=== PATIENT | male | born 1940 | race Caucasian/White ===

== ENCOUNTER 2017-04-03 13:22 | Inpatient (IN) | payer OTHER ==
[~2017-04-03] VITALS: Ht 175.3 cm; Wt 99.8 kg
[2017-04-03 15:24] LABS: EOSINOPHIL (%) 0 % (0-5); HEMATOCRIT 44.9 % (38.0-50.0); IMMATURE GRANULOCYTE (%) 0.5 % (0.0-0.7); IMMATURE GRANULOCYTE COUNT 0.1 K/uL; INSTRUMENT ABS NEUTROPHIL CT 11.4 K/uL; LYMPHOCYTE COUNT 0.6 K/uL (1.0-2.8); MCHC 34.7 G/DL (30.0-36.0); MCV 86.3 FL (86-99); MEAN PLAT.VOLUME 9.7 uM^3 (9.0-12.4); MONOCYTE (%) 3.2 % (3-12); MONOCYTE COUNT 0.4 K/uL (0-0.8); NEUTROPHIL (%) 91.2 % (45-76); NEUTROPHIL COUNT 11.4 K/uL (1.8-6.4); PLATELET COUNT 151 K/uL (156-360); RBC DIS.WIDTH-CV 13.2 % (11.8-14.6); RBC DIS.WIDTH-SD 41.1 % (39-53); WHITE BLOOD COUNT 12.4 K/uL (4.1-10.2)
[2017-04-03 15:30] LABS: PROTHROMBIN TIME 11.1 SEC (10.2-12.9)
[2017-04-03 15:33] LABS: PTT 30.7 SEC (25-37)
[2017-04-03 15:36] LABS: CHLORIDE 107 mEq/L (99-109); SODIUM 139 mEq/L (136-147)
[2017-04-03 15:38] LABS: GLUCOSE 127 mg/dL (70-99)
[2017-04-03 15:40] LABS: ANION GAP 11 MEQ/L (2-14); TOTAL BILIRUBIN 1.7 mg/dL (0.0-1.0)
[2017-04-03 15:42] LABS: ALKALINE PHOSPHATASE 88 IU/L (3-129); GFR ESTIMATE (CALCULATED) > 59 mL/min/
[2017-04-03 15:43] LABS: UREA NITROGEN (BUN) 20 mg/dL (9-23)
[2017-04-03 15:45] LABS: TROP-I INTERPRETATION NEGATIVE; TROPONIN-I < 0.01 ng/mL (0.0-0.30)
[2017-04-03 16:25] LABS: ADD MIUA? NO; BILIRUBIN NEGATIVE; BLOOD NEGATIVE; COLOR YELLOW ((YELLOW)); GLUCOSE (STRIP) NEGATIVE; KETONES NEGATIVE; LEUKOCYTES NEGATIVE; NITRITE NEGATIVE; PROTEIN (STRIP) 30; SPECIFIC GRAVITY 1.018 (1.000-1.030); UCUL ADDED? NO; UROBILINOGEN 0.2 MG/DL (0.2-1.0)
[2017-04-03 20:57] VITALS: BP 164/72
[2017-04-03 21:26] LABS: TROP-I INTERPRETATION NEGATIVE; TROPONIN-I 0.03 ng/mL (0.0-0.30)
[2017-04-03 23:48] VITALS: BP 137/63
[2017-04-04 03:42] VITALS: BP 151/74
[2017-04-04 03:43] LABS: HEMATOCRIT 39.5 % (38.0-50.0); MCH 31.1 PG (29.0-34.0); MCHC 35.4 G/DL (30.0-36.0); MCV 87.8 FL (86-99); MEAN PLAT.VOLUME 9.7 uM^3 (9.0-12.4); PLATELET COUNT 139 K/uL (156-360); RBC DIS.WIDTH-CV 13.5 % (11.8-14.6); RBC DIS.WIDTH-SD 43.3 % (39-53); WHITE BLOOD COUNT 12.4 K/uL (4.1-10.2)
[2017-04-04 03:57] LABS: CHLORIDE 106 mEq/L (99-109); SODIUM 139 mEq/L (136-147)
[2017-04-04 04:00] LABS: GLUCOSE 122 mg/dL (70-99)
[2017-04-04 04:01] LABS: ANION GAP 9 MEQ/L (2-14)
[2017-04-04 04:03] LABS: ALKALINE PHOSPHATASE 71 IU/L (3-129); GFR ESTIMATE (CALCULATED) > 59 mL/min/
[2017-04-04 04:04] LABS: TOTAL BILIRUBIN 2.5 mg/dL (0.0-1.0); UREA NITROGEN (BUN) 16 mg/dL (9-23)
[2017-04-04 04:10] LABS: TROP-I INTERPRETATION NEGATIVE; TROPONIN-I 0.02 ng/mL (0.0-0.30)
[2017-04-04 08:12] VITALS: BP 137/63
[2017-04-04] MEDS ORDERED: MEVACOR40 MG PO (11:04)
[2017-04-04] MEDS ORDERED: BRILINTA90 MG PO (11:04)
[2017-04-04] MEDS ORDERED: QUINAPRIL HCL20 MG PO (11:04)
[2017-04-04] MEDS ORDERED: AMLODIPINE BESY10 MG PO (11:04)
[2017-04-04] MEDS ORDERED: LOPRESSOR25 MG PO (11:05)
[2017-04-04] MEDS ORDERED: PAXIL10 MG PO (11:05)
[2017-04-04] MEDS ORDERED: LO-DOSE ASPIRIN81 M1 PO (11:49)
[2017-04-04 11:54] VITALS: BP 134/61
[2017-04-04 16:33] VITALS: BP 131/76
[2017-04-04 19:48] VITALS: BP 148/66
[2017-04-04 23:31] VITALS: BP 140/61
[2017-04-05] VITALS (7 sets, daily range): BP systolic 139–176; BP diastolic 61–79
[2017-04-05 06:54] LABS: HEMATOCRIT 39.6 % (38.0-50.0); MCH 31.7 PG (29.0-34.0); MCHC 35.6 G/DL (30.0-36.0); MEAN PLAT.VOLUME 10.1 uM^3 (9.0-12.4); PLATELET COUNT 125 K/uL (156-360); RBC DIS.WIDTH-CV 13.9 % (11.8-14.6); RBC DIS.WIDTH-SD 45.1 % (39-53); RED BLOOD COUNT 4.45 M/uL (4.00-5.50); WHITE BLOOD COUNT 12.5 K/uL (4.1-10.2)
[2017-04-05 07:23] LABS: ALKALINE PHOSPHATASE 59 IU/L (3-129); ANION GAP 8 MEQ/L (2-14); CHLORIDE 104 MEQ/L (99-109); GFR ESTIMATE (CALCULATED) > 59 mL/min/; GLUCOSE 100 mg/dL (70-99); POTASSIUM 3.7 MEQ/L (3.7-5.4); SAMPLE HEMOLYSIS CHECK 0; SAMPLE ICTERIC CHECK 0; SAMPLE LIPEMIA CHECK 0; SODIUM 137 MEQ/L (136-147); TOTAL BILIRUBIN 2.4 MG/DL (0.0-1.0); UREA NITROGEN (BUN) 15 mg/dL (9-23)
[2017-04-05 07:24] LABS: ALKALINE PHOSPHATASE 60 IU/L (3-129); DIRECT BILIRUBIN 0.4 mg/dL (0.0-0.3); TOTAL BILIRUBIN 2.4 MG/DL (0.0-1.0)
[2017-04-06 04:02] VITALS: BP 164/75
[2017-04-06 06:43] LABS: ALKALINE PHOSPHATASE 66 IU/L (3-129); ANION GAP 7 MEQ/L (2-14); CHLORIDE 102 MEQ/L (99-109); GFR ESTIMATE (CALCULATED) > 59 mL/min/; GLUCOSE 98 mg/dL (70-99); POTASSIUM 3.7 MEQ/L (3.7-5.4); SAMPLE HEMOLYSIS CHECK 0; SAMPLE ICTERIC CHECK 0; SAMPLE LIPEMIA CHECK 0; SODIUM 137 MEQ/L (136-147); UREA NITROGEN (BUN) 15 mg/dL (9-23)
[2017-04-06 08:18] VITALS: BP 126/61
[2017-04-06 08:56] LABS: HEMATOCRIT 41.1 % (38.0-50.0); MCH 30.1 PG (29.0-34.0); MCHC 33.8 G/DL (30.0-36.0); MEAN PLAT.VOLUME 9.7 uM^3 (9.0-12.4); PLATELET COUNT 124 K/uL (156-360); RBC DIS.WIDTH-CV 13.6 % (11.8-14.6); RED BLOOD COUNT 4.62 M/uL (4.00-5.50); WHITE BLOOD COUNT 9.9 K/uL (4.1-10.2)
[2017-04-06 11:34] VITALS: BP 158/70
[2017-04-06 16:01] VITALS: BP 166/70
[2017-04-06 19:28] VITALS: BP 166/74
[2017-04-06 23:40] VITALS: BP 166/74
[2017-04-07 04:07] VITALS: BP 150/64
[2017-04-07 07:57] VITALS: BP 126/58
[2017-04-07 09:29] LABS: HEMATOCRIT 39.1 % (38.0-50.0); MCH 31.4 PG (29.0-34.0); MCV 89.7 FL (86-99); MEAN PLAT.VOLUME 10.4 uM^3 (9.0-12.4); PLATELET COUNT 131 K/uL (156-360); RBC DIS.WIDTH-CV 13.6 % (11.8-14.6); RED BLOOD COUNT 4.36 M/uL (4.00-5.50); WHITE BLOOD COUNT 8.6 K/uL (4.1-10.2)
[2017-04-07 09:56] LABS: ANION GAP 8 MEQ/L (2-14); CHLORIDE 100 MEQ/L (99-109); DIRECT BILIRUBIN 0.5 mg/dL (0.0-0.3); GFR ESTIMATE (CALCULATED) > 59 mL/min/; GLUCOSE 139 mg/dL (70-99); POTASSIUM 3.6 MEQ/L (3.7-5.4); SAMPLE HEMOLYSIS CHECK 0; SAMPLE ICTERIC CHECK 0; SAMPLE LIPEMIA CHECK 0; SODIUM 137 MEQ/L (136-147); TOTAL BILIRUBIN 2.2 MG/DL (0.0-1.0); UREA NITROGEN (BUN) 15 mg/dL (9-23)
[2017-04-07 09:58] LABS: ALKALINE PHOSPHATASE 97 IU/L (3-129)
[2017-04-07 11:33] VITALS: BP 124/58
== END 2017-04-07 15:57 | disposition home or self-care (01) | DRG 445 ==
LOC: EME 13:22 → EDOF 18:52 → 3EAST 18:52 → ENRESERV 18:54 → 3EAST 19:58
PROVIDERS: Emergency Medicine; Hospitalist; Internal Medicine Gastroenterology; Physician Assistant
DX: K80.70 Calculus of gallbladder and bile duct without cholecystitis without obstruction (principal); R07.89 Other chest pain; N28.1 Cyst of kidney, acquired; K76.0 Fatty (change of) liver, not elsewhere classified; R16.0 Hepatomegaly, not elsewhere classified; J81.1 Chronic pulmonary edema; I11.9 Hypertensive heart disease without heart failure; I44.0 Atrioventricular block, first degree; I25.10 Atherosclerotic heart disease of native coronary artery without angina pectoris; I35.0 Nonrheumatic aortic (valve) stenosis; M48.06 Spinal stenosis, lumbar region; E78.5 Hyperlipidemia, unspecified; M54.5 Low back pain; E66.9 Obesity, unspecified; Z68.32 Body mass index [BMI] 32.0-32.9, adult; Z95.5 Presence of coronary angioplasty implant and graft; Z95.2 Presence of prosthetic heart valve; Z85.819 Personal history of malignant neoplasm of unspecified site of lip, oral cavity, and pharynx; Z92.21 Personal history of antineoplastic chemotherapy; Z92.3 Personal history of irradiation; Z79.02 Long term (current) use of antithrombotics/antiplatelets; Z79.82 Long term (current) use of aspirin
CPT/HCPCS: 70450; 71010; 71275; 72125; 72146; 72148; 74177; 74181; 74183; 76705; 80048; 80053; 80076; 81003; 84484; 85025; 85027; 85610; 85730; 86900; 86901; 93005; 99281; 99285; J1644; J2060; J2270; J3010; J7040

== ENCOUNTER 2018-04-03 12:05 | Emergency (ER) | payer OTHER ==
[~2018-04-03] VITALS: Ht 175.3 cm; Wt 92.1 kg
[~2018-04-03 12:05] MED LIST: AMLODIPINE BESY10 MG PO; ASPIRIN325 MG PO; BRILINTA90 MG PO; LOPRESSOR25 MG PO; MEVACOR40 MG PO; PAXIL10 MG PO; QUINAPRIL HCL20 MG PO
[2018-04-03 13:23] LABS: APPEARANCE CLEAR ((CLEAR)); BILIRUBIN NEGATIVE; BLOOD SMALL; COLOR YELLOW ((YELLOW)); GLUCOSE (STRIP) 50; KETONES NEGATIVE; LEUKOCYTES NEGATIVE; NITRITE NEGATIVE; PROTEIN (STRIP) 30; SPECIFIC GRAVITY 1.018 (1.000-1.030); UROBILINOGEN 0.2 MG/DL (0.2-1.0)
[2018-04-03 13:23] LABS: BASOPHIL (%) 0.2 % (0-1); EOSINOPHIL (%) 0 % (0-5); HEMOGLOBIN 15.8 G/DL (12.5-16.6); IMMATURE GRANULOCYTE (%) 0.8 % (0.0-0.7); LYMPHOCYTE (%) 5.1 % (15-42); LYMPHOCYTE COUNT 0.5 K/uL (1.0-2.8); MCH 31.7 PG (29.0-34.0); MCHC 35.9 G/DL (30.0-36.0); MCV 88.2 FL (86-99); MONOCYTE (%) 1.4 % (3-12); MONOCYTE COUNT 0.2 K/uL (0-0.8); NEUTROPHIL (%) 92.5 % (45-76); NEUTROPHIL COUNT 9.8 K/uL (1.8-6.4); PLATELET COUNT 158 K/uL (156-360); RBC DIS.WIDTH-CV 13.3 % (11.8-14.6); RBC DIS.WIDTH-SD 43.4 % (39-53); RED BLOOD COUNT 4.99 M/uL (4.00-5.50); WHITE BLOOD COUNT 10.6 K/uL (4.1-10.2)
[2018-04-03 13:26] LABS: BACTERIA NONE SEEN /HPF; EPITHELIAL CELLS NONE SEEN /HPF; MUCUS 1+ /LPF; UCUL ADDED? NO; WHITE BLOOD CELLS 0-5 /HPF (0-5)
[2018-04-03 13:36] LABS: ALBUMIN 4.3 g/dL (3.2-4.8); CHLORIDE 104 mEq/L (99-109); SODIUM 136 mEq/L (136-147)
[2018-04-03 13:39] LABS: GLUCOSE 155 mg/dL (70-99); TOTAL PROTEIN 7.3 g/dL (6.4-8.3)
[2018-04-03 13:40] LABS: TOTAL BILIRUBIN 1.7 mg/dL (0.0-1.0)
[2018-04-03 13:42] LABS: ALKALINE PHOSPHATASE 103 IU/L (3-129); CREATININE 0.9 mg/dL (0.6-1.3); GFR ESTIMATE (CALCULATED) > 59 mL/min/ (58.99-99999)
[2018-04-03 13:43] LABS: UREA NITROGEN (BUN) 16 mg/dL (9-23)
[2018-04-03 13:44] LABS: AST (GOT) 23 IU/L (2-34)
[2018-04-03 13:45] LABS: ALT (GPT) 24 IU/L (3-49)
[2018-04-03 13:46] LABS: LIPASE 16 U/L (1.0-51.0)
[2018-04-03 17:12] LABS: TROP-I INTERPRETATION NEGATIVE; TROPONIN-I 0.02 ng/mL (0.0-0.30)
[2018-04-03] MEDS ORDERED: ZOFRAN4 MG PO (17:46)
[2018-04-03] MEDS ORDERED: NORCO 5/3251 TABLET PO (17:46)
[2018-04-03 18:00] VITALS: BP 153/74
== END 2018-04-03 18:14 | disposition home or self-care (01) ==
LOC: EME 12:05
PROVIDERS: Emergency Medicine
DX: K80.70 Calculus of gallbladder and bile duct without cholecystitis without obstruction (principal); K76.0 Fatty (change of) liver, not elsewhere classified; K74.60 Unspecified cirrhosis of liver; I10 Essential (primary) hypertension; Z85.819 Personal history of malignant neoplasm of unspecified site of lip, oral cavity, and pharynx; Z92.21 Personal history of antineoplastic chemotherapy
CPT/HCPCS: 74177; 80053; 81003; 83690; 84484; 85025; 93005; 99281; 99285; J2405; J3010; J7040